=== PATIENT | male | born 1955 | race Caucasian/White ===

== ENCOUNTER 2018-01-09 13:38 | Day surgery (SDC) | payer BC ==
[2018-01-09] MEDS ORDERED: FENTAnyl 50 MCG/ML VIAL (15:48)
[2018-01-09] MEDS ORDERED: MIDAZOLAM 1 MG/ML 2 ML INJ ×2 (15:48)
== END 2018-01-09 17:56 | disposition home or self-care (01) ==
LOC: GIL 13:38
DX: Z12.11 Encounter for screening for malignant neoplasm of colon (principal); K44.9 Diaphragmatic hernia without obstruction or gangrene; K29.60 Other gastritis without bleeding; K64.8 Other hemorrhoids; K21.0 Gastro-esophageal reflux disease with esophagitis
CPT/HCPCS: 43239; 87081